=== PATIENT | male | born 1980 | race Two or more races ===

== ENCOUNTER 2023-02-22 23:50 | Emergency (ER) | payer OTHER ==
[~2023-02-22] VITALS: Ht 185.4 cm; Wt 100.1 kg
[2023-02-23 00:36] LABS: Basophils # (auto) 0 10 ^3/uL (0-0.2); Basophils % (auto) 0.1 % (0.0-2.0); Eosinophils # (auto) 0 10 ^3/uL (0-0.8); Hematocrit 48.5 % (41.0-53.0); Hemoglobin 16.9 g/dL (13.5-17.5); Lymphocytes # (auto) 0.5 10 ^3/uL (0.4-5.4); Lymphocytes % (auto) 4.9 % (10.0-50.0); Mean Corpuscular Hemoglobin 31.8 pg (28.0-32.0); Mean Corpuscular Hgb Conc. 34.9 g/dL (32.0-36.0); Mean Corpuscular Volume 91.2 fL (80.0-100.0); Monocytes # (auto) 0.5 10 ^3/uL (0-1.3); Monocytes % (auto) 4.3 % (0.0-12.0); Neutrophils % (auto) 90.7 % (37.0-80.0); Red Blood Cells 5.32 10^6/uL (4.5-5.90); Red Cell Distribution Width 13.4 % (11.8-14.3)
[2023-02-23] MEDS ORDERED: ONDANSETRON HCL 4 MG/2 ML VIAL IM ONE (00:45)
[2023-02-23] MEDS ORDERED: KETOROLAC TROMETH 30 MG/ML 1ML VIAL IM ONE (00:45)
[2023-02-23 00:54] LABS: Alanine Aminotransferase 59 U/L (7-40); Albumin 4.6 g/dL (3.2-4.8); Alkaline Phosphatase 62 U/L (46-116); Anion Gap 12 (5-15); Aspartate Aminotransferase 43 U/L (13-40); BUN/Creatinine Ratio 13.2 (10.0-20.0); Blood Urea Nitrogen 14 mg/dL (9-23); Calcium 9.5 mg/dL (8.7-10.4); Carbon Dioxide 23 mmol/L (20-30); Chloride 99 mmol/L (98-107); Glucose 160 mg/dL (74-106); Lipase 22 U/L (12-53); Potassium 3.2 mmol/L (3.5-5.1); Sodium 134 mmol/L (136-145)
[2023-02-23 00:55] LABS: Bilirubin, Total 2.2 mg/dL (0.2-1.0); Total Protein 7.9 g/dL (5.7-8.2)
[2023-02-23 01:13] LABS: Urine Bacteria NONE SEEN /hpf (None Seen); Urine Blood 2+ /uL (Negative); Urine Clarity HAZY (Clear); Urine Color Brown (Yellow); Urine Mucus FEW (None Seen); Urine Protein, UAD 3+ (Negative); Urine WBC 3 /hpf (0 - 3)
[2023-02-23 01:26] LABS: Rapid Influenza A Negative (Negative); Rapid Influenza B Negative (Negative)
[2023-02-23 01:27] LABS: COVID19 ANTIGEN SOFIA FIA NEGATIVE (NEGATIVE)
[2023-02-23] MEDS ORDERED: SODIUM CHLORIDE 0.9% 1,000 ML IV ONE (01:45)
[2023-02-23 02:03] LABS: Amphetamine Screen, Urine Neg (NEGATIVE); Barbiturate Scree,Urine Neg (NEGATIVE); Benzodiazephine Screen, Urine Neg (NEGATIVE); Cannabinoid Screen, Urine Pos (NEGATIVE); Cocaine Screen, Urine Neg (NEGATIVE); Opiate Scree,Urine Neg (NEGATIVE); Phencyclidine Screen, Urine Neg (NEGATIVE)
[2023-02-23] MEDS ORDERED: ZOFR4T PO (02:23)
[2023-02-23 02:45] VITALS: BP 100/66; PULSE 115; RESP 17; TEMP 98.8; O2SAT 95
== END 2023-02-23 02:52 | disposition home or self-care (01) ==
LOC: ER 23:50
DX: R74.8 Abnormal levels of other serum enzymes (principal); E86.0 Dehydration; E87.6 Hypokalemia; E87.1 Hypo-osmolality and hyponatremia; Z20.822 Contact with and (suspected) exposure to COVID-19; Z79.899 Other long term (current) drug therapy
CPT/HCPCS: 36415; 80053; 80307; 81001; 83690; 85025; 87426; 87804; 96360; 96372; 99284; J1885; J2405; J7030

== ENCOUNTER 2023-02-24 10:57 | Inpatient (IN) | payer OTHER ==
[~2023-02-24] VITALS: Ht 185.4 cm; Wt 100.0 kg
[2023-02-24] VITALS (32 sets, daily range): BP systolic 27–219; BP diastolic 14–143; PULSE 89–160; RESP 22–67; TEMP 36.2; O2SAT 35–99
[~2023-02-24 10:57] MED LIST: ZOFR4T PO
[2023-02-24] MEDS ORDERED: DOPamine 1600mCg/ml 400MG/250ml NSorD5 KIT/BAG IV ONE (10:58)
[2023-02-24] MEDS ORDERED: CALCIUM CHLOR(10%) 100MG/ML 10ML SYRINGE IV ONE ×2 (10:58→21:29)
[2023-02-24] MEDS ORDERED: ATROPINE SULF 1 MG/10ml SYR IM ONE (10:58)
[2023-02-24] MEDS ORDERED: EPINEPHrine HCL 1 MG/10 ML SYRG IV ONE ×3 (10:58→22:22)
[2023-02-24] MEDS ORDERED: methylPREDNISolone SOD SUCC 125 MG/2 ML VL ONE (11:12)
[2023-02-24] MEDS ORDERED: methylPREDNISolone SOD SUCC 125 MG/2 ML VL IV ONE (11:15)
[2023-02-24] MEDS ORDERED: MIDAZOLAM DRIP 50 mg/50mL 50 ML IV SCH (11:30)
[2023-02-24] MEDS ORDERED: SODIUM CHLORIDE 0.9% 1,000 ML IV ONE (11:30)
[2023-02-24] MEDS ORDERED: MIDAZOLAM DRIP 50 mg/50mL 50 ML IV ONE (11:33)
[2023-02-24 11:55] LABS: INR 1.27 (0.9-1.15); Partial Thromboplastin Time 56.1 SEC (24.5-34.5); Prothrombin Time 13.1 sec (9.3-11.8)
[2023-02-24 11:56] LABS: Alanine Aminotransferase 44 U/L (7-40); Alkaline Phosphatase 41 U/L (46-116); Anion Gap 28 (5-15); Aspartate Aminotransferase 79 U/L (13-40); BUN/Creatinine Ratio 13.9 (10.0-20.0); Calcium 8.4 mg/dL (8.7-10.4); Carbon Dioxide 16 mmol/L (20-30); Chloride 96 mmol/L (98-107); Glucose 83 mg/dL (74-106); Magnesium 2.7 mg/dL (1.6-2.6); Potassium 3.7 mmol/L (3.5-5.1); Sodium 140 mmol/L (136-145)
[2023-02-24 11:57] LABS: Bilirubin, Total 1.1 mg/dL (0.2-1.0); Total Protein 5.1 g/dL (5.7-8.2)
[2023-02-24 12:00] LABS: Base Excess -21.1 mmol/L (-2.0-2.0)
[2023-02-24 12:00] LABS: Hematocrit 48.1 % (41.0-53.0); Hemoglobin 16.2 g/dL (13.5-17.5); Mean Corpuscular Hemoglobin 32.2 pg (28.0-32.0); Mean Corpuscular Hgb Conc. 33.6 g/dL (32.0-36.0); Mean Corpuscular Volume 95.7 fL (80.0-100.0); Red Blood Cells 5.03 10^6/uL (4.5-5.90); Red Cell Distribution Width 13.7 % (11.8-14.3); White Blood Cell 4.6 10^3/uL (4.4-10.8)
[2023-02-24] MEDS ORDERED: NOREPINEPHRINE 8 MG/250ML KIT 250 ML IV ONE ×2 (12:11→18:14)
[2023-02-24 12:15] LABS: Blood Urea Nitrogen 38 mg/dL (9-23)
[2023-02-24 12:16] LABS: Lactic Acid w/Reflex 19.1 mmol/L (0.4-2.0)
[2023-02-24] MEDS ORDERED: SODIUM CHLORIDE 0.9% 2,000 ML IV ONE (12:30)
[2023-02-24] MEDS ORDERED: cefTRIAXone 1GM/50ML D5W 50 ML IV ONE (12:30)
[2023-02-24] MEDS ORDERED: AZITHROMYCIN 500MG/ 250ML 250 ML IV ONE (12:30)
[2023-02-24] MEDS ORDERED: NOREPINEPHRINE 8 MG/250ML KIT 250 ML IV SCH (12:30)
[2023-02-24] MEDS ORDERED: fentaNYL Drip 2500mCg/250mlNS 250 ML IV SCH (13:15)
[2023-02-24] MEDS ORDERED: IOHEXOL 350 MG/ML 100ML IJ ONE (13:24)
[2023-02-24] MEDS ORDERED: EPINEPHrine HCL 250 ML IV ONE ×2 (13:26→13:45)
[2023-02-24] MEDS ORDERED: SODIUM BICARBONATE 8.4% INJ 50ML SYRINGE ONE (13:36)
[2023-02-24 13:42] LABS: Base Excess -16.1 mmol/L (-2.0-2.0)
[2023-02-24 13:43] LABS: Platelet Estimate Decreased
[2023-02-24] MEDS ORDERED: SODIUM BICARB 50ML SYR 150 ML in SODIUM CHLORIDE 0.9% 1,000 ML IV ONE (13:45)
[2023-02-24 13:52] LABS: Band Neutrophils % (manual) 4; Basophils % (manual) 1 (0.0-2.0); Blast Cells 3; Eosinophils % (manual) 2 (0-7); Lymphocytes % (manual) 61 (10.0-50.0); Metamyelocytes % 3; Monocytes % (manual) 4 (0-12); Myelocytes % 4; Promyelocytes % 9; Reactive Lymphocytes 1
[2023-02-24 13:54] LABS: Giant Platelets Few
[2023-02-24 14:04] LABS: Amphetamine Screen, Urine Neg (NEGATIVE)
[2023-02-24 14:05] LABS: Barbiturate Scree,Urine Neg (NEGATIVE); Benzodiazephine Screen, Urine Neg (NEGATIVE); Cocaine Screen, Urine Neg (NEGATIVE); Opiate Scree,Urine Neg (NEGATIVE); Phencyclidine Screen, Urine Neg (NEGATIVE)
[2023-02-24 14:06] LABS: Cannabinoid Screen, Urine Pos (NEGATIVE)
[2023-02-24 14:18] LABS: COVID19 ANTIGEN SOFIA FIA NEGATIVE (NEGATIVE)
[2023-02-24 14:23] LABS: Rapid Influenza A Negative (Negative); Rapid Influenza B Negative (Negative)
[2023-02-24] MEDS ORDERED: PANTOPRAZOLE 40mg/50ML NS AE 50 ML IV ONE (14:30)
[2023-02-24] MEDS ORDERED: SODIUM BICARBONATE 50ML VIAL 150 ML in D5W 5% 1,000 ML IV SCH (14:30)
[2023-02-24] MEDS ORDERED: VANCOMYCIN PER PHARMACY 0 MG IV SCH (14:30)
[2023-02-24] MEDS ORDERED: ACETAMINOPHEN 325 MG TAB PO PRN (14:30)
[2023-02-24] MEDS ORDERED: SODIUM CHLORIDE 0.9% 1,000 ML IV SCH (14:30)
[2023-02-24] MEDS ORDERED: PANTOPRAZOLE 40mg/50ML NS AE 50 ML IV SCH (14:30)
[2023-02-24] MEDS ORDERED: ONDANSETRON HCL 4 MG/2 ML VIAL IV PRN (14:30)
[2023-02-24 15:21] LABS: Hematocrit 42.4 % (41.0-53.0); Hemoglobin 14.2 g/dL (13.5-17.5); Mean Corpuscular Hemoglobin 31.8 pg (28.0-32.0); Mean Corpuscular Hgb Conc. 33.5 g/dL (32.0-36.0); Red Blood Cells 4.46 10^6/uL (4.5-5.90); Red Cell Distribution Width 13.2 % (11.8-14.3); White Blood Cell 4.9 10^3/uL (4.4-10.8)
[2023-02-24] MEDS ORDERED: SODIUM BICARBONATE 8.4 % INJ 50ML VIAL IV ONE ×3 (15:27→23:36)
[2023-02-24] MEDS ORDERED: AMIODARONE 450mg/250ml AE 250 ML IV SCH ×2 (15:30→21:30)
[2023-02-24] MEDS ORDERED: OCTREOTIDE ACETATE 100 MCG in SODIUM CHL 0.9% 50 ML IV ONE (15:30)
[2023-02-24] MEDS ORDERED: CEFEPIME 2GM/50ML NS 50 ML IV ONE (15:30)
[2023-02-24] MEDS ORDERED: OCTREOTIDE ACETATE 500 MCG in SODIUM CHL 0.9% 99 ML IV SCH (15:30)
[2023-02-24] MEDS ORDERED: AMIODARONE BOLUS KIT 100 ML IV ONE (15:30)
[2023-02-24 15:35] LABS: INR 1.61 (0.9-1.15); Prothrombin Time 16.4 sec (9.3-11.8)
[2023-02-24 15:44] LABS: Basophils % (manual) 0 (0.0-2.0); Promyelocytes % 0; Reactive Lymphocytes 0
[2023-02-24] MEDS ORDERED: TRANEXAMIC ACID 1,000 MG in SODIUM CHL 0.9% 100 ML IV ONE (15:45)
[2023-02-24] MEDS ORDERED: TRANEXAMIC ACID 10 ML ONE (15:46)
[2023-02-24 15:56] LABS: Lactic Acid w/Reflex 12.1 mmol/L (0.4-2.0)
[2023-02-24] MEDS ORDERED: VANCOMYCIN 1GM/200ML 200 ML IV ONE (16:00)
[2023-02-24] MEDS ORDERED: DEXTROSE 10% 250 ML Bag IV ONE (16:15)
[2023-02-24 16:47] LABS: Base Excess -15.9 mmol/L (-2.0-2.0)
[2023-02-24 17:08] LABS: Band Neutrophils % (manual) 15; Blast Cells 1; Eosinophils % (manual) 3 (0-7); Lymphocytes % (manual) 44 (10.0-50.0); Metamyelocytes % 8; Monocytes % (manual) 3 (0-12); Myelocytes % 1; Platelet Estimate Decreased
[2023-02-24] MEDS ORDERED: PHENYLEPHRINE IV 250 ML IV ONE (17:37)
[2023-02-24] MEDS ORDERED: PHENYLEPHRINE IV 250 ML IV SCH (17:45)
[2023-02-24 17:53] LABS: Albumin 2.3 g/dL (3.2-4.8); Alkaline Phosphatase 60 U/L (46-116); Aspartate Aminotransferase > 1000 U/L (13-40); Bilirubin, Total 1.3 mg/dL (0.2-1.0); Carbon Dioxide 15 mmol/L (20-30); Magnesium 2.7 mg/dL (1.6-2.6); Phosphorus 11.1 mg/dL (2.4-5.1)
[2023-02-24 17:54] LABS: Total Protein 4.1 g/dL (5.7-8.2)
[2023-02-24 17:58] LABS: Anion Gap 24 (5-15); Chloride 103 mmol/L (98-107); Sodium 142 mmol/L (136-145)
[2023-02-24 18:11] LABS: Calcium 5.8 mg/dL (8.7-10.4)
[2023-02-24 18:12] LABS: Glucose 45 mg/dL (74-106)
[2023-02-24 18:13] LABS: Potassium 3.5 mmol/L (3.5-5.1)
[2023-02-24 18:14] LABS: Alanine Aminotransferase 290 U/L (7-40); BUN/Creatinine Ratio 10.3 (10.0-20.0); Blood Urea Nitrogen 35 mg/dL (9-23)
[2023-02-24 18:18] LABS: Blood Alcohol < 3.0 mg/dL (<10)
[2023-02-24] MEDS ORDERED: DEXTROSE 50% SYRINGE 50 ML IV ONE ×2 (18:32→19:33)
[2023-02-24] MEDS ORDERED: VASOPRESSIN 20 UNITS in SODIUM CHL 0.9% 99 ML IV SCH (19:15)
[2023-02-24] MEDS ORDERED: DEXTROSE 10% 1,000 ML IV SCH (20:15)
[2023-02-24] MEDS ORDERED: CALCIUM GLUC 1,000mg/50ml-NS 50 ML IV SCH (20:15)
[2023-02-24] MEDS ORDERED: CALCIUM GLUC 1,000mg/50ml-NS 50 ML IV ONE (20:15)
[2023-02-24 20:19] LABS: Hemoglobin 18.8 g/dL (13.5-17.5)
[2023-02-24 20:23] LABS: Mean Corpuscular Hemoglobin 30.5 pg (28.0-32.0); Mean Corpuscular Hgb Conc. 32.3 g/dL (32.0-36.0); Mean Corpuscular Volume 94.6 fL (80.0-100.0); Red Blood Cells 6.15 10^6/uL (4.5-5.90); White Blood Cell 6.2 10^3/uL (4.4-10.8)
[2023-02-24 20:36] LABS: Hematocrit 58.1 % (41.0-53.0)
[2023-02-24 20:37] LABS: Basophils % (manual) 0 (0.0-2.0); Blast Cells 0; Eosinophils % (manual) 0 (0-7); Myelocytes % 0; Promyelocytes % 0; Reactive Lymphocytes 0
[2023-02-24 20:57] LABS: Band Neutrophils % (manual) 9; Lymphocytes % (manual) 20 (10.0-50.0); Metamyelocytes % 4; Monocytes % (manual) 5 (0-12); Platelet Estimate Decreased
[2023-02-24 21:19] LABS: Albumin 1.5 g/dL (3.2-4.8); Alkaline Phosphatase 54 U/L (46-116); Anion Gap 25 (5-15); Aspartate Aminotransferase > 1000 U/L (13-40); Bilirubin, Total 1.1 mg/dL (0.2-1.0); Carbon Dioxide 15 mmol/L (20-30); Chloride 102 mmol/L (98-107); Magnesium 2.9 mg/dL (1.6-2.6); Phosphorus 14.4 mg/dL (2.4-5.1); Sodium 142 mmol/L (136-145); Total Protein 2.6 g/dL (5.7-8.2)
[2023-02-24 21:38] LABS: Lactic Acid w/Reflex 17.3 mmol/L (0.4-2.0)
[2023-02-24 21:44] LABS: BUN/Creatinine Ratio 12.1 (10.0-20.0); Blood Urea Nitrogen 44 mg/dL (9-23); Calcium 11.3 mg/dL (8.7-10.4); Glucose 339 mg/dL (74-106); Potassium 4.3 mmol/L (3.5-5.1)
[2023-02-24 21:45] LABS: Alanine Aminotransferase 611 U/L (7-40)
[2023-02-24] MEDS ORDERED: METOPROLOL TARTRATE 25 MG TAB NG SCH (22:00)
[2023-02-24] MEDS ORDERED: CEFEPIME 1GM/ 50ML 100 ML IV SCH (22:00)
[2023-02-24] MEDS ORDERED: CEFEPIME 2GM/50ML NS 50 ML IV SCH (22:00)
[2023-02-24] MEDS ORDERED: DEXTROSE (50%) 50ML SYRG IV ONE (22:23)
[2023-02-24] MEDS ORDERED: DOPamine 1600MCG/ML D5W 250 ML IV SCH (23:00)
[2023-02-24 23:20] LABS: Hemoglobin 16.6 g/dL (13.5-17.5); Mean Corpuscular Hemoglobin 30.1 pg (28.0-32.0); Mean Corpuscular Hgb Conc. 29.6 g/dL (32.0-36.0); Mean Corpuscular Volume 101.8 fL (80.0-100.0); Red Cell Distribution Width 16.9 % (11.8-14.3); White Blood Cell 11.2 10^3/uL (4.4-10.8)
[2023-02-24 23:24] LABS: Basophils % (manual) 0 (0.0-2.0); Blast Cells 0; Promyelocytes % 0; Reactive Lymphocytes 0
[2023-02-24 23:34] LABS: INR 2.88 (0.9-1.15); Prothrombin Time 28.2 sec (9.3-11.8)
[2023-02-25] VITALS (13 sets, daily range): BP systolic 52–98; BP diastolic 0–44; PULSE 89–128; RESP 15–24; TEMP 96.1–97.7; O2SAT 68–74
[2023-02-25 00:56] LABS: Band Neutrophils % (manual) 38; Eosinophils % (manual) 1 (0-7); Lymphocytes % (manual) 34 (10.0-50.0); Metamyelocytes % 6; Monocytes % (manual) 4 (0-12); Myelocytes % 5
[2023-02-25 00:57] LABS: Anisocytosis Slight; Macrocytosis Slight; Platelet Estimate Decreased
[2023-02-25] MEDS ORDERED: EPINEPHrine HCL 250 ML IV ONE (01:25)
[2023-02-25] MEDS ORDERED: PIPERACILLIN-TAZOB 3.375GM 100 ML IV SCH (06:00)
[2023-02-26 09:59] LABS: Hepatitis B Core Total AB Negative (Negative)
[2023-02-26 11:46] LABS: Hepatitis A Total Antibody Positive (Negative)
[2023-02-26 11:47] LABS: Hepatitis B Surface Antibody Positive (Negative); Hepatitis B Surface Antigen Negative (Negative)
[2023-02-26 11:51] LABS: Hepatitis C Antibody Reactive (Negative)
== END 2023-02-25 01:53 | DRG 720 ==
LOC: EDBD 10:57 → ER 10:57 → TELE 14:47 → ICU WEST 18:18
PROVIDERS: ADMIT Nurse Practitioner Family; ATTEND Internal Medicine Pulmonary Disease
PROC: 5A1945Z Respiratory Ventilation, 24-96 Consecutive Hours (ICD-10-PCS; principal; 2023-02-24)
PROC: 06HY33Z Insertion of Infusion Device into Lower Vein, Percutaneous Approach (ICD-10-PCS; 2023-02-24)
PROC: 5A12012 Performance of Cardiac Output, Single, Manual (ICD-10-PCS; 2023-02-24)
PROC: 5A2204Z Restoration of Cardiac Rhythm, Single (ICD-10-PCS; 2023-02-24)
PROC: 5A12012 Performance of Cardiac Output, Single, Manual (ICD-10-PCS; 2023-02-25)
DX: A41.9 Sepsis, unspecified organism (principal); K72.00 Acute and subacute hepatic failure without coma; I46.9 Cardiac arrest, cause unspecified; R65.21 Severe sepsis with septic shock; J96.01 Acute respiratory failure with hypoxia; J96.02 Acute respiratory failure with hypercapnia; D69.6 Thrombocytopenia, unspecified; J18.9 Pneumonia, unspecified organism; E83.41 Hypermagnesemia; I21.4 Non-ST elevation (NSTEMI) myocardial infarction; Z20.822 Contact with and (suspected) exposure to COVID-19; E87.4 Mixed disorder of acid-base balance; E86.0 Dehydration; D75.839 Thrombocytosis, unspecified; F12.10 Cannabis abuse, uncomplicated; F40.240 Claustrophobia; I49.01 Ventricular fibrillation; K92.2 Gastrointestinal hemorrhage, unspecified; N17.9 Acute kidney failure, unspecified; E16.2 Hypoglycemia, unspecified; Z83.3 Family history of diabetes mellitus; Z82.49 Family history of ischemic heart disease and other diseases of the circulatory system; Z83.42 Family history of familial hypercholesterolemia
CPT/HCPCS: 31500; 36415; 36430; 36556; 36600; 70450; 71045; 71260; 74177; 76604; 80053; 80307; 80320; 82140; 82805; 82962; 83605; 83735; 84100; 84443; 84484; 85007; 85027; 85362; 85384; 85610; 85730; 86704; 86706; 86708; 86803; 86850; 86900; 86901; 86920; 87040; 87070; 87077; 87081; 87186; 87205; 87340; 87426; 87804; 92950; 93005; 93306; 94002; 96365; 96367; 96368; 99291; G0378; J0171; J2250; J2543